=== PATIENT | female | born 1980 | race Caucasian/White ===

== ENCOUNTER → 2019-06-29 | Outpatient (CLI) | payer BC ==
--- NOTE | 2019-06-29 11:44 | US ---
EXAMINATION TYPE: US thyroid st tissue head/neck DATE OF EXAM: 06/29/2019 COMPARISON: NONE CLINICAL HISTORY: R94.6 abn labs, R22.0 thyroid swelling. abnormal thyroid labs GLAND SIZE: Right Lobe: 4.1 x 1.1 x 1.0 cm Overall Parenchyma: homogenous Left Lobe: 3.5 x 0.9 x 1.2 cm Overall Parenchyma: homogeneous Isthmus Thickness: 0.2 cm NODULES RIGHT: # of nodules measured on right: 0 LEFT: # of nodules measured on left: 0 ISTHMUS: # of nodules measured in the isthmus: 0 Bilateral neck scanned, no evidence of lymphadenopathy. IMPRESSION: 1. Normal thyroid scan
--- NOTE | 2019-07-02 08:50 | MM ---
Reason for exam: clinical finding. Baseline mammogram. History: Family history of breast cancer in maternal aunt and breast cancer in maternal uncle. Indicated problem(s): palpable abnormality in the right breast. Physical Findings: Nurse did not find any significant physical abnormalities on exam. [facility] Diagnostic Mammo w CAD [place] Bilateral CC and MLO view(s) were taken. There are scattered fibroglandular densities. Finding #1: There is a 4 mm circumscribed round mass in the outer quadrant, posterior middle position. Finding #2: There are typically benign round calcifications in both breasts. There is no discrete abnormality. These results were verbally communicated with the patient and result sheet given to the patient on 06/29/19. ASSESSMENT: Incomplete: need additional imaging evaluation, BI-RAD 0 RECOMMENDATION: Ultrasound of the right breast. (palpable, mammographic abnormality)
--- NOTE | 2019-07-02 08:51 | USB ---
Reason for exam: additional evaluation requested from abnormal screening. History: Family history of breast cancer in maternal aunt and breast cancer in maternal uncle. US Breast RT Right complete breast ultrasound includes all four quadrants, the retroareolar region and axilla. Finding demonstrates no cystic or solid lesion seen. These results were verbally communicated with the patient and result sheet given to the patient on 06/29/19. ASSESSMENT: Probably benign, BI-RAD 3 RECOMMENDATION: Follow-up diagnostic mammogram of the right breast in 6 months. Manage on a clinical basis with regard to palpable.
== END | disposition home or self-care (01) ==
LOC: MERGE 06-28 11:00 → RADUSWWP 09:13
PROVIDERS: ATTEND Family Medicine
DX: N63.11 Unspecified lump in the right breast, upper outer quadrant (principal); R94.6 Abnormal results of thyroid function studies; R22.0 Localized swelling, mass and lump, head
CPT/HCPCS: 76536; 77066

== ENCOUNTER → 2019-12-31 | Outpatient (CLI) | payer BC ==
--- NOTE | 2019-12-31 10:46 | MM ---
Reason for exam: follow-up at short interval from prior study. Last mammogram was performed 6 months ago. History: Family history of breast cancer in maternal aunt and breast cancer in maternal uncle. Took hormonal contraceptives for 3 years beginning at age 19. Physical Findings: Nurse did not find any significant physical abnormalities on exam. [facility] Diagnostic Mammo RT w CAD CC and MLO view(s) were taken of the right breast. Prior study comparison: June 29, 2019, bilateral MG diagnostic mammo w CAD [facility]. There are scattered fibroglandular densities. No significant new findings when compared with previous films. These results were verbally communicated with the patient and result sheet given to the patient on 12/31/19. ASSESSMENT: Negative, BI-RAD 1 RECOMMENDATION: Routine screening mammogram of both breasts in 1 year. Manage on a clinical basis with regard to any suspicious palpable areas.
== END | disposition home or self-care (01) ==
LOC: RADMAMWWP 09:16
PROVIDERS: ATTEND Family Medicine
DX: R92.8 Other abnormal and inconclusive findings on diagnostic imaging of breast (principal); N63.10 Unspecified lump in the right breast, unspecified quadrant
CPT/HCPCS: 77065

== ENCOUNTER → 2022-10-09 | Outpatient (CLI) | payer OTHER ==
--- NOTE | 2022-10-10 14:59 | MR ---
EXAMINATION TYPE: MR knee RT wo con DATE OF EXAM: 10/09/2022 COMPARISON: None HISTORY: Rt knee pain TECHNIQUE: Multiplanar, multisequence imaging of the right knee is performed without IV contrast. FINDINGS: MEDIAL MENISCUS: Anterior and posterior horns are intact without tear. LATERAL MENISCUS: Anterior and posterior horns are intact without tear. CRUCIATE LIGAMENTS: The anterior and posterior cruciate ligaments are intact and unremarkable. COLLATERAL LIGAMENTS: The medial collateral ligament and lateral collateral ligament complex are inta ct and unremarkable. EXTENSOR MECHANISM: Visualized quadriceps and patellar tendons are intact. EFFUSION: No significant suprapatellar joint effusion. POPLITEAL CYST: No popliteal/roach cyst. TRICOMPARTMENT SPACES: Mild narrowing patellofemoral joint space. CARTILAGE: There is mild thinning of the patellar cartilage. BONE MARROW SIGNAL: No focal abnormal marrow signal is appreciated. OTHER: Ganglion cyst along the posterior medial aspect of the tibia measures 1.4 cm in length. IMPRESSION: 1. Grade I chondromalacia patella. 2. Ganglion cyst along the posterior medial aspect of the tibia measures 1.4 cm in length.
== END | disposition home or self-care (01) ==
LOC: RADMRIMAIN 18:25
PROVIDERS: ATTEND Orthopaedic Surgery
DX: M22.41 Chondromalacia patellae, right knee (principal); M67.461 Ganglion, right knee

== ENCOUNTER → 2022-11-29 | Outpatient (CLI) | payer OTHER ==
--- NOTE | 2022-12-01 07:54 | MR ---
EXAMINATION TYPE: MR knee LT wo con DATE OF EXAM: 11/29/2022 COMPARISON: NONE HISTORY: Left knee pain, locking, and swelling for years. TECHNIQUE: Multiplanar, multisequence images of the knee is performed without IV contrast. FINDINGS: MEDIAL MENISCUS: Anterior and posterior horns are intact without tear. LATERAL MENISCUS: Anterior and posterior horns are intact without tear. CRUCIATE LIGAMENTS: The anterior and posterior cruciate ligaments are intact and unremarkable. COLLATERAL LIGAMENTS: The medial collateral ligament and lateral collateral ligament complex are inta ct and unremarkable. EXTENSOR MECHANISM: Visualized quadriceps and patellar tendons are intact. EFFUSION: No significant suprapatellar joint effusion. POPLITEAL CYST: No popliteal/roach cyst. TRICOMPARTMENT SPACES: Tricompartmental joint spaces are preserved. Mild spurring medial and lateral tibiofemoral compartments. CARTILAGE: Tricompartmental articular cartilage is maintained. BONE MARROW SIGNAL: No focal abnormal marrow signal is appreciated. OTHER: No additional significant abnormality is appreciated. IMPRESSION: No meniscal or ligamentous tear is seen.
== END | disposition home or self-care (01) ==
LOC: RADMRIMAIN 18:30
PROVIDERS: ATTEND Orthopaedic Surgery
DX: M25.562 Pain in left knee (principal); M25.462 Effusion, left knee

== ENCOUNTER → 2023-03-03 | Outpatient (CLI) | payer OTHER ==
--- NOTE | 2023-03-04 09:27 | MM ---
Reason for Exam: Screening (asymptomatic). Last mammogram was performed 3 year(s) and 8 month(s) ago. Patient History: Menarche at age 12. First Full-Term at age 21. Premenopausal. Hormonal Contraceptives for 3 years from age 19 until age 21. Maternal aunt had breast cancer. Maternal uncle had breast cancer. Risk Values: Keisha 5 year model risk: 0.6%. NCI Lifetime model risk: 8.9%. Prior Study Comparison: 06/29/2019 Bilateral Diagnostic Mammogram, [facility]. 12/31/2019 Right Diagnostic Mammogram, [facility]. Tissue Density: The breast tissue is almost entirely fat. Findings: Analyzed By CAD. There is no suspicious group of microcalcifications or new suspicious mass. Overall Assessment: Negative, BI-RAD 1 Management: Screening Mammogram of both breasts in [address] [facility] will attempt to contact patient to return for supplemental views and ultrasound if indicated. Patient should continue monthly self-breast exams. A clinical breast exam by your physician is recommended on an annual basis. This exam should not preclude additional follow-up of suspicious palpable abnormalities. Note on Keisha scores and lifetime risk: 1. A Keisha score greater than 3% is considered moderate risk. If this is the case, consider specialist referral to assess eligibility for a risk reducing agent. 2. If overall lifetime risk for the development of breast cancer is 20% or higher, the patient may qualify for future screening with alternating mammogram and breast MRI. Electronically signed and approved by: Miguel Cano DO
== END | disposition home or self-care (01) ==
LOC: RADMAMWWP 16:10
PROVIDERS: ATTEND Family Medicine
DX: Z12.31 Encounter for screening mammogram for malignant neoplasm of breast (principal); Z80.3 Family history of malignant neoplasm of breast
CPT/HCPCS: 77067